=== PATIENT | female | born 1985 | race Caucasian/White ===

== ENCOUNTER 2017-06-27 11:38 | Emergency (ER) | payer SELFPAY ==
[2017-06-27 12:17] VITALS: BP 144/100
--- NOTE | 2017-06-27 12:18 | ER Document Report ---
ED Medical Screen (RME) - General Chief Complaint: Nausea/Vomiting Stated Complaint: VOMITING Time Seen by Provider: 06/27/17 12:11 Mode of Arrival: Ambulatory Information source: Patient Notes: 31-year-old female with a history of gastroparesis presents to the emergency room with complaints of vomiting on and off for the past week. She denies any pain at this time. No known history of gallstones. No fever or chills. She has had episodes like this before which has resolved after Phenergan but that usually makes her tired. She denies any fatigue or recent illnesses. TRAVEL OUTSIDE OF THE [place] IN LAST 30 DAYS: No - HPI Onset: Other - Several months Onset/Duration: Gradual Quality of pain: No pain Severity: None Pain Level: Denies Associated Symptoms: denies: Chest pain, Shortness of breath Exacerbated by: Denies Relieved by: Denies Similar symptoms previously: Yes Recently seen / treated by doctor: Yes - Related Data Smoking: Non-smoker Frequency of alcohol use: None Drug Abuse: None Allergies/Adverse Reactions: cephalexin [From Keflex] Allergy (Verified 06/27/17 11:39) Past Medical History - General Information source: Patient - Social History Cigarette use (# per day): No Chew tobacco use (# tins/day): No Frequency of alcohol use: None Drug Abuse: None Lives with: Family Family history: None - Past Medical History Cardiac Medical History: Reports: None Pulmonary Medical History: Reports: None EENT Medical History: Reports: None Neurological Medical History: Reports: None Endocrine Medical History: Reports: None Renal/ Medical History: Reports: None. Denies: Hx Peritoneal Dialysis Malignancy Medical History: Reports: None GI Medical History: Reports: Other - Gastroparesis Musculoskeltal Medical History: Reports None Skin Medical History: Reports None Psychiatric Medical History: Reports: None Traumatic Medical History: Reports: None Infectious Medical History: Reports: None Surgical Hx: Negative Review of Systems - Review of Systems Constitutional: No symptoms reported EENT: No symptoms reported Cardiovascular: No symptoms reported Respiratory: No symptoms reported Gastrointestinal: See HPI Genitourinary: No symptoms reported Female Genitourinary: No symptoms reported Musculoskeletal: No symptoms reported Skin: No symptoms reported Hematologic/Lymphatic: No symptoms reported Neurological/Psychological: No symptoms reported Physical Exam - Vital signs Vitals: Temp Pulse Resp BP Pulse Ox 97.9 F 81 20 153/104 H 99 06/27/17 11:44 06/27/17 11:44 06/27/17 11:44 06/27/17 11:44 06/27/17 11:44 Notes: Physical exam: GENERAL: 31-year-old female, alert and oriented 3, no acute distress. Patient looks quite good on exam. HEAD: Atraumatic, normocephalic. EYES: Pupils equal round and reactive to light, extraocular movements intact, sclera anicteric, conjunctiva are normal. ENT: TMs normal, nares patent, oropharynx clear without exudates. Moist mucous membranes. NECK: Normal range of motion, supple without obvious mass or JVD. LUNGS: Breath sounds clear to auscultation bilaterally and equal. No wheezes rales or rhonchi. HEART: Regular rate and rhythm without murmurs, rubs or gallops. ABDOMEN: Soft, normoactive bowel sounds. No tenderness to palpation. No guarding, no rebound. No masses appreciated. EXTREMITIES: Normal range of motion, no pitting or edema. No clubbing or cyanosis. NEUROLOGICAL: Cranial nerves II through XII grossly intact. Normal speech, moving all extremities. PSYCH: Normal mood, normal affect. SKIN: Warm, Dry, normal turgor, no rashes or lesions noted. Course - Re-evaluation Re-evalutation: 06/27/17 14:37 Note: Patient looks quite good in triage. She is in no distress and ambulating around the room. She is not actively vomiting. I have given her some Zofran/ Reglan for symptomatic relief and I have referred her to the [facility]. - Vital Signs Vital signs: Temp Pulse Resp BP Pulse Ox 97.9 F 74 16 144/100 H 99 06/27/17 11:44 06/27/17 12:15 06/27/17 12:15 06/27/17 12:15 06/27/17 12:15 Doctor's Discharge - Discharge Clinical Impression: Vomiting/gastroparesis Condition: Stable Disposition: HOME, SELF-CARE Additional Instructions: As we discussed, take the Zofran for nausea. If the Zofran does not work, you could try Reglan. The Reglan may be a little more sedating (so take it at night). Return to the emergency room if this does not help in your persistent vomiting, or if you feel faint, or if you start having pain. Drink small amounts of fluid at a time. Eat small amounts of food frequently. Avoid fried, heavy foods. It is important that you follow-up with the primary care doctor: Follow-up at the [facility] which is a free clinic (put the number on the chart). Also note, that your blood pressure was elevated today. It is important to get a recheck in the blood pressure when in the [facility]. You can often get discounts for the medicines by going on the website [email or web address] follow-up at the [facility] which is a free clinic. [address], [place] [address] Prescriptions: Metoclopramide HCl [Reglan 10 mg Tablet] 1 - 2 tab PO ASDIR PRN #14 tablet PRN Reason:
[2017-06-27] MEDS ORDERED: ONDANSETRON ODT 4 MG TAB (6 TAB/ER DISP) PO PRN (12:19)
== END 2017-06-27 12:27 | disposition home or self-care (01) ==
LOC: ER 11:38
DX: K31.84 Gastroparesis (principal); R11.2 Nausea with vomiting, unspecified
CPT/HCPCS: 99284